=== PATIENT | female | born 1970 | race Two or more races ===

== ENCOUNTER 2024-07-11 20:23 | Emergency (ER) | payer BC ==
[~2024-07-11] VITALS: Ht 165.1 cm; Wt 65.8 kg
[2024-07-11] MEDS ORDERED: LIDOCAINE HCL 1% 10ML VIAL ONE (21:12)
[2024-07-11] MEDS ORDERED: CEFTRIAXONE SODIUM 1,000 MG VIAL IM ONE (21:15)
[2024-07-11] MEDS ORDERED: LIDOCAINE HCL 1% 10ML VIAL PERCUT ONE (21:15)
[2024-07-11] MEDS ORDERED: TETANUS & DIPHTHERIA TOX,ADULT 0.5 ML VIAL IM ONE (21:15)
[2024-07-11] MEDS ORDERED: CEPHALEXIN500 MG PO (21:57)
[2024-07-11] MEDS ORDERED: CEFTRIAXONE SODIUM 1,000 MG VIAL ONE (22:06)
[2024-07-11] MEDS ORDERED: DIPHTH,PERTUSS(ACELL),TET VAC 0.5 ML SYRINGE IM ONE (22:07)
== END 2024-07-11 22:20 ==
LOC: ER 20:24
DX: S61.021A Laceration with foreign body of right thumb without damage to nail, initial encounter (principal); W22.8XXA Striking against or struck by other objects, initial encounter; Y93.89 Activity, other specified; Y92.89 Other specified places as the place of occurrence of the external cause
CPT/HCPCS: 12001; 90471; 90714; J1670